=== PATIENT | female | born 1960 | race Caucasian/White ===

== ENCOUNTER → 2016-12-03 | Outpatient (CLI) | payer MEDICARE ==
[2014-03-07 15:00] VITALS: BP 136/76
[~2016-12-03] MED LIST: ADVAIR 250/28 DISKUS IH; ALBUTEROL0.09 MG/A4 IH; CETIRIZINE HCL10 MG PO; FLONASE0.05 MG/AC NS; KEPPRA750 MG PO; LEVOTHYROXIN0.125 MG PO; LISINOPRIL10 MG PO; RANITIDINE300 MG PO; TRILEPTAL PO; VITAMIN D35000 IU PO
== END ==
LOC: LAB 15:15
DX: E03.9 Hypothyroidism, unspecified (principal); E11.9 Type 2 diabetes mellitus without complications

== ENCOUNTER → 2018-02-09 | Outpatient (CLI) | payer OTHER ==
[2014-03-07 15:00] VITALS: BP 136/76
[2018-02-09 15:02] LABS: BUN/CREATININE RATIO 13.3 (6.0-26.0); CALCIUM 8.9 mg/dL (8.4-10.2); POTASSIUM 3.6 mmol/L (3.6-5.0); TOTAL BILIRUBIN 0.3 mg/dL (0.2-1.3); TOTAL PROTEIN 7.1 g/dL (6.3-8.2)
== END ==
LOC: LAB 14:26
PROVIDERS: Family Medicine
DX: E03.9 Hypothyroidism, unspecified (principal); E11.9 Type 2 diabetes mellitus without complications; I49.9 Cardiac arrhythmia, unspecified